=== PATIENT | female | born 1950 | race Caucasian/White ===

== ENCOUNTER 2016-11-23 12:44 | Inpatient (IN) | payer MEDICARE ==
[2016-11-23] VITALS (7 sets, daily range): BP systolic 107–136; BP diastolic 49–67; BMI 30.9
[~2016-11-23 12:44] MED LIST: ADVAIR 500/501 DISK INH; CLARITIN 10 MG10 MG PO; COLACE100 MG PO; FLUTICASONE PRO16 GM NASAL; IBUPROFEN400 MG; IPRAT-ALBUT 0.5-3 ML UPD; K-DUR20 MEQ PO; KEFLEX500 MG PO; LASIX20 MG PO; MIRALAX17 GM PO; NORVASC10 MG; OMNICEF300 MG PO; PEPCID20 MG PO; PHENYTEK200 MG PO; PRAVACHOL20 MG PO; PROZAC20 MG PO; TOPAMAX200 MG PO; TRAVOPROST 0.02.5 ML EACH EYE; TRAZODONE HCL50 MG PO; VITAMIN D31000 UNIT PO; ZYPREXA15 MG PO
[2016-11-23 13:25] LABS: BASOPHILS 0.2 % (0-2); EOSINOPHILS 0 % (0-7); HEMATOCRIT 35.3 % (36.0-48.0); HEMOGLOBIN 10.8 g/dL (12-16); IMMATURE GRANULOCYTES 0.3 % (0-5); LYMPHOCYTES 7.4 % (15-50); MCH 28.7 pg (26.0-34.0); MCHC 30.6 g/dL (31.0-37.0); MCV 93.9 fL (80.0-100.0); MEAN PLATELET VOLUME 10.8 fL (7.4-10.4); MONOCYTES 14.5 % (2-11); NEUTROPHILS 77.6 % (40-80); PLATELET COUNT 191 10x3/uL (130-400); RBC 3.76 10x6/uL (4.00-5.40); RDW 14.5 % (11.5-14.5); WBC 10.7 10x3/uL (4.8-10.8)
[2016-11-23 13:42] LABS: ALBUMIN 2.5 g/dL (3.4-5.0); ANION GAP 8.1 mmol/L (8-16); BILIRUBIN - TOTAL 0.2 mg/dL (0.2-1.3); CALCIUM 8.3 mg/dL (8.5-10.1); CARBON DIOXIDE 31.6 mmol/L (21.0-32.0); CREATININE - SERUM 0.9 mg/dL (0.6-1.3); POTASSIUM - SERUM 3.7 mmol/L (3.5-5.1); PROTEIN - SERUM 6.9 g/dL (6.4-8.2)
[2016-11-23 14:46] LABS: APPEARANCE CLEAR (CLEAR); BILIRUBIN NEGATIVE (NEGATIVE); COLOR YELLOW (YELLOW); GLUCOSE 50 mg/dL (NEGATIVE); KETONE NEGATIVE (NEGATIVE); NITRITE NEGATIVE (NEGATIVE); PROTEIN NEGATIVE (NEGATIVE); SPECIFIC GRAVITY 1.015 (1.005-1.020); UROBILINOGEN NORMAL (NORMAL)
--- NOTE | 2016-11-23 18:19 | NUR ---
1820 PT ARRIVED FROM THE ED VIA [facility].. PT IS AWAKE AND ALERT ABLE TO ANSWER QUESTIONS.. DAUGHTER IS [facility] PT .. BIPAP O2 ON 30% O2 SAT IS 96%...
--- NOTE | 2016-11-23 19:15 | NUR ---
Assessment completed per flowsheet, patient resting in bed on BiPAP. Patient AOx4, calm and cooperative. Eyes PERRLA @ 4mm with brisk response, sclera is slightly reddened. S1/S2 noted NSR on telemetry with HR 80, rhythmic and regular. Breathing is shallow and labored on BiPAP @ 30% with O2 sat 94%, Expiratory wheeze noted bilateral upper and mid with diminished L upper and bilateral lower. Abdomen is ditended and soft, tenderness noted L upper quadrant. Rodriguez secured in place, concentrated yellow urine noted in collection. Full ROM all extremities with slight weakness noted bilateral lower, all pulses palpable. Skin is warm/dry to touch, cap refill < 3 sec. 20g PIV noted L AC, patent and saline locked. Patient denies pain or other needs at this time, all VSS and will continue to monitor.
--- NOTE | 2016-11-23 23:00 | NUR ---
Reassessment completed per flowsheet, patient resting in bed with eyes closed. Eyes PERRLA @ 4mm with brisk response, sclera is slightly reddened. S1/S2 noted with HR 68, rhythmic and regular. Breathing is slightly shallow and labored on BiPAP @ 30% with O2 sat 96%, expiratory wheeze noted bilateral upper and mid with diminished L upper and bilateral lower. All pulses palpable with cap refill < 3 sec, skin is warm/dry to touch. Patient denies pain or other needs at this time, all VSS and will continue to monitor.
[2016-11-24] VITALS (25 sets, daily range): BP systolic 104–160; BP diastolic 52–82
--- NOTE | 2016-11-24 01:00 | NUR ---
Patient resting in bed with eyes closed on BiPAP, breathing is slightly shallow and labored with O2 sat 96%. Patient denies pain or other needs at this time, all VSS and will continue to monitor.
--- NOTE | 2016-11-24 03:00 | NUR ---
Reassessment completed per flowsheet, patient resting in bed with eyes closed. Patient AO x4, calm and cooperative. S1/S2 noted Sinus Delmar on telemetry with HR 58, rhythmic and regular. Breathing is slightly shallow and labored on BiPAP 30% with O2 sat 96%, expiratory wheeze noted bilateral upper and mid with diminished L upper and bilateral lower. All pulses palpable with cap refill < 3 sec, skin warm/dry to touch. Patient denies pain or other needs at this time, all VSS and will continue to monitor.
--- NOTE | 2016-11-24 05:00 | NUR ---
Patient laying in bed with eyes open watching TV on BiPAP, breathing is slightly shallow and labored with O2 sat 95%. Repositioned for comfort, patient denies pain or other needs at this time. All VSS and will continue to monitor.
[2016-11-24 05:08] LABS: BASOPHILS 0.1 % (0-2); EOSINOPHILS 0 % (0-7); HEMATOCRIT 35.7 % (36.0-48.0); HEMOGLOBIN 10.7 g/dL (12-16); IMMATURE GRANULOCYTES 0.2 % (0-5); LYMPHOCYTES 11.4 % (15-50); MCH 28.6 pg (26.0-34.0); MCV 95.5 fL (80.0-100.0); MEAN PLATELET VOLUME 11.1 fL (7.4-10.4); MONOCYTES 9.1 % (2-11); NEUTROPHILS 79.2 % (40-80); PLATELET COUNT 201 10x3/uL (130-400); RBC 3.74 10x6/uL (4.00-5.40); RDW 14.4 % (11.5-14.5); WBC 10.4 10x3/uL (4.8-10.8)
[2016-11-24 05:12] LABS: HEMOGLOBIN A1C 6.4 % (4.8-6.0)
[2016-11-24 05:26] LABS: ALBUMIN 2.5 g/dL (3.4-5.0); ANION GAP 13.2 mmol/L (8-16); BILIRUBIN - TOTAL 0.2 mg/dL (0.2-1.3); CALCIUM 8.1 mg/dL (8.5-10.1); CARBON DIOXIDE 31.6 mmol/L (21.0-32.0); CREATININE - SERUM 1.1 mg/dL (0.6-1.3); POTASSIUM - SERUM 3.8 mmol/L (3.5-5.1); PROTEIN - SERUM 6.9 g/dL (6.4-8.2); THYROID STIMULATING HORMONE 0.76 uIU/mL (0.36-3.74)
[2016-11-24 05:41] LABS: C-REACTIVE PROTEIN 31.3 mg/dL (0.0-0.9)
--- NOTE | 2016-11-24 07:15 | NUR ---
Dr Lockhart not consulted by ER, notified this AM in person.
--- NOTE | 2016-11-24 12:50 | NUR ---
ON BIPAP THIS AM. PLACE ON 3 LITERS PER NC. RESP DEEP AND REGULAR NO DISTRESS. VERY STRONG AND DEEP COUGH PRODUCTIVE. FAN PLACED IN ROOM AT PATIENT REQUEST LUNCH TRAY SERVED AT 50%. DAUGHTER HERE QUESTIONS ANSWERED
--- NOTE | 2016-11-24 17:15 | NUR ---
IV RESTARTED DUE TO LEAKING. 22 GAUGE INSERTED IN LEFT FOREARM Z 1 ATTEMPT. INFUSING WITH NS KVO. PATIENT TOLERATED WELL.
--- NOTE | 2016-11-24 19:00 | NUR ---
Received patient resting in bed with eyes open watching TV, assessment completed per flowsheet. Patient AO x4, calm and cooperative. Eyes PERRLA @ 4mm with brisk response, sclera is slightly reddened. S1/S2 noted NSR on telemetry with HR 65, rhythmic and regular. Breathing is slightly shallow and lobored on 3l via NC with O2 sat 96%, Inspiratory/Expiratory wheeze noted bilateral upper and mid with diminished lower. Abdomen is round and soft with bowel sounds active x4, non-tender. Rodriguez secured in place with concentrated dark yellow urine noted. Full ROM all extremities with slight weakness noted, all pulses palpable with cap refill < 3 sec. 20g PIV noted L wrist, patent with NS @ KVO (10ml) infusing. Patient c/o burning pain 1/10 midsternal when coughing, denies other needs at this time. All VSS and will continue to monitor.
--- NOTE | 2016-11-24 21:00 | NUR ---
No visitors at this time, all HS meds given without difficulty. Patient denies pain or other needs at this time, all VSS and will continue to monitor.
--- NOTE | 2016-11-24 22:15 | NUR ---
Patient placed on BiPAP at request, BiPAP @ 30% with O2 sat 98%.
--- NOTE | 2016-11-24 22:50 | NUR ---
Reassessment completed per flowsheet, patient resting in bed on BiPAP. Patient AO x4, calm and cooperative. S1/S2 noted Sinus Delmar on telemetry with HR 58, rhythmic and regular. Breathing is slightly shallow on BiPAP @ 30% with O2 sat 97%, Inspiratory/Expiratory wheeze noted bilateral upper and mid with diminished lower. All pulses palpable with cap refill < 3 sec, skin is warm/dry to touch. Patient denies pain or other needs at this time, all VSS and will continue to monitor.
[2016-11-25] VITALS (14 sets, daily range): BP systolic 103–136; BP diastolic 52–83
--- NOTE | 2016-11-25 01:00 | NUR ---
Patient resting in bed with eyes closed on BiPAP @ 30% with O2 sat 96%. No further needs at this time, all VSS and will continue to monitor.
--- NOTE | 2016-11-25 02:40 | NUR ---
Patient had BM in bed, small formed brown stool. Full Bed bath/Linen change performed, patient repositioned. No further needs at this time, will continue to monitor.
--- NOTE | 2016-11-25 03:00 | NUR ---
Reassessment completed per flowsheet, patient resting in bed with eyes closed on BiPAP. Patient AO x4, calm and cooperative. S1/S2 noted Sinus Delmar on telemetry with HR 56, rhythmic and regular. Breathing is slightly shallow on BiPAP 30% with O2 sat 98%, Inspiratory/Expiratory wheeze noted bilateral upper and mid with diminished lower. All pulses palpable with cap refill < 3 sec, skin warm/dry to touch. Patient denies pain or other needs at this time, all VSS and will continue to monitor.
--- NOTE | 2016-11-25 05:00 | NUR ---
Patient resting in bed with eyes closed on BiPAP @ 30% with O2 sat 96%. Patient denies pain or other needs at this time, all VSS and will continue to monitor.
[2016-11-25 05:37] LABS: ANION GAP 8.9 mmol/L (8-16); CALCIUM 8.6 mg/dL (8.5-10.1); CARBON DIOXIDE 33.7 mmol/L (21.0-32.0); CREATININE - SERUM 1.2 mg/dL (0.6-1.3); MAGNESIUM - SERUM 1.8 mg/dL (1.8-2.4); PHOSPHOROUS 3.2 mg/dL (2.5-4.9); POTASSIUM - SERUM 3.6 mmol/L (3.5-5.1)
[2016-11-25 05:46] LABS: BASOPHILS 0.2 % (0-2); EOSINOPHILS 0.1 % (0-7); HEMOGLOBIN 10.7 g/dL (12-16); IMMATURE GRANULOCYTES 0.5 % (0-5); LYMPHOCYTES 10.7 % (15-50); MCH 28.4 pg (26.0-34.0); MCHC 30.6 g/dL (31.0-37.0); MCV 92.8 fL (80.0-100.0); MEAN PLATELET VOLUME 11.2 fL (7.4-10.4); MONOCYTES 7.2 % (2-11); NEUTROPHILS 81.3 % (40-80); PLATELET COUNT 211 10x3/uL (130-400); RBC 3.77 10x6/uL (4.00-5.40); RDW 14.1 % (11.5-14.5); WBC 9.5 10x3/uL (4.8-10.8)
--- NOTE | 2016-11-25 06:20 | NUR ---
Patient L wrist IV infiltrated, resited x1 attempt to L forearm. Patent with dressing CDI, fluids infusing.
--- NOTE | 2016-11-25 08:53 | NUR ---
* Is the patient Alert and Oriented? Yes 0 * How many steps to enter\exit or inside your home? 4 0 * PCP Dr. Avery Stanley 0 * Pharmacy [facility] 0 * Preadmission Environment Home Alone 0 * ADLs Partial Dependent 0 * Partial ADLs (Assistance needed) Medication Management 0 * Equipment CPAP Nebulizer Oxygen Rolling Walker 0 * List name and contact numbers for known caregivers / representatives who currently or will assist patient after discharge: Rocío Baker [phone] 0 * Additional services required to return to the preadmission environment? No 0 * Can the patient safely return to the preadmission environment? Yes 0 * Has this patient been hospitalized within the prior 30 days at any hospital? No Patient Name: KANDY BAKER Admission Status: ER Accout number: [id number] Admission Date: 11-23-2016 : 1950 Admission Diagnosis: Attending: LINDA, Current LOS: 2 Planned Disposition: Assisted Living Primary Insurance: MEDICARE A & B Discharge Planning Comments: CM met with patient to assess dc plans/needs. Patient states she lives at [facility]. They provide assistance with medication administration. She uses a walker, O2, Nebulizer & CPAP. At dc, she plans to return to [place]. Discussed services - she states she does not feel she will need them, stating [place] provides her with all the help she needs. CM will follow & assist as needed. Split Leather Mosser: Rebecca Pelletier
--- NOTE | 2016-11-25 10:01 | NUR ---
DAUGHTER CALLED TO CHECK ON PATIENT SHE STATED SHE WOULD BE HERE AROUND 1200 VISITING. PATIENT DENIES ANY NEEDS OR PAIN AT THIS TIME.
--- NOTE | 2016-11-25 11:09 | NUR ---
DR. MCGRAW IN TO SEE PATIENT, NEW ORDERS RECEIVED.
--- NOTE | 2016-11-25 11:36 | NUR ---
PHYSICAL THERAPY HERE IN ROOM WITH PATIENT. PATIENT TRANSFERRED WITH MINIMAL ASSIST TO CHAIR.
--- NOTE | 2016-11-25 12:19 | NUR ---
PATIENT EATING LUNCH WHILE SITTING UP IN CHAIR. CALL WITHIN REACH. PATIENT IS IN GOOD STABLE CONDITION.
--- NOTE | 2016-11-25 13:45 | NUR ---
PATIENT IS UP IN CHIAR AT BEDSIDE TOLERATING WELL. CALL LIGHT WITHIN REACH. PATIENT DENIES ANY NEEDS AT THIS TIME.
--- NOTE | 2016-11-25 16:25 | NUR ---
CALLED TO GIVE REPORT FOR PATIENT TRANSFERRING TO ROOM 2113. ROOM IS BEING CLEANED AND WILL CALL WHEN IT IS FINISHED.
--- NOTE | 2016-11-25 16:34 | NUR ---
ESTRADA CATH REMOVED TIP INTACT WITHOUT DRAINAGE NOTED. PATIENT IS ABLE TO GET UP AND DOWN WITH MINIMAL ASSISTANCE, AND REQUESTED ESTRADA TO BE OUT.
--- NOTE | 2016-11-25 17:06 | NUR ---
REPORT CALLED TO [facility], SPOKE WITH ANTONINO DRAPER. PATIENT WILL BE TRANSFERRING TO 2112.
--- NOTE | 2016-11-25 17:07 | NUR ---
PATIENT TRANSFERRED TO [facility] ROOM 2113 VIA W/C IN GOOD STABLE CONDITION. PATIENT TOLERATED TRANSFER WELL. PATIENTS GLASSES AND BELONGS SENT WITH PATIENT.
--- NOTE | 2016-11-25 17:30 | NUR ---
PT RECEIVED FROM ICU. PT IS ALERT AND ORIENTED. VS ON TRANSFER STABLE. PT IS ON 3L OXYGEN VIA NC. STILL GETTING SOB WITH EXERTION, BUT GAIT IS STEADY. LUNG SOUNDS SHOW CRACKLES IN LEFT BASES AND SCATTERED RHONCHI. NSR W/ RATE OF 60'S ON MONITOR. IVF- NS @ 10CC/HR TO 22G LEFT FOREARM SITE. IV ZITHROMAX RUNNING. PT IS REQUESTING FAN, [employer] CALLED. STATES THAT SHE WILL GET ONE FOR PT, BUT IT WILL BE A LITTLE WHILE. TISSUES GIVEN TO PT PER REQUEST. PT DENIES ANY OTHER QUESTIONS, CONCERNS, OR NEEDS. WILL CONT TO MONITOR.
--- NOTE | 2016-11-25 18:30 | NUR ---
PT'S ESTRADA WAS D/C'D AROUND 1630 BY ICU, PT HAS VOIDED X 2 SINCE HER ARRIVAL ON THE UNIT.
--- NOTE | 2016-11-25 23:12 | NUR ---
NURSE ROUNDS 20:00 - PT LYING IN BED, BIPAP ON, PT RESTING COMFORTABLY, NO NEEDS. CONTINUE TO MONITOR CLOSELY. BED LOW, CALL LIGHT IN REACH, SIDE RAILS X 2, HOB 30 DEGREES.
[2016-11-26] VITALS: BP 111/47
[2016-11-26 04:00] VITALS: BP 119/63; BP 126/54
[2016-11-26 05:22] LABS: BASOPHILS 0.1 % (0-2); EOSINOPHILS 0 % (0-7); HEMATOCRIT 36.9 % (36.0-48.0); HEMOGLOBIN 11.3 g/dL (12-16); IMMATURE GRANULOCYTES 0.8 % (0-5); LYMPHOCYTES 14.6 % (15-50); MCH 28.3 pg (26.0-34.0); MCHC 30.6 g/dL (31.0-37.0); MCV 92.5 fL (80.0-100.0); MONOCYTES 8.6 % (2-11); NEUTROPHILS 75.9 % (40-80); PLATELET COUNT 227 10x3/uL (130-400); RBC 3.99 10x6/uL (4.00-5.40); RDW 14.1 % (11.5-14.5); WBC 8.6 10x3/uL (4.8-10.8)
[2016-11-26 05:39] LABS: ANION GAP 10.5 mmol/L (8-16); C-REACTIVE PROTEIN 10.6 mg/dL (0.0-0.9); CARBON DIOXIDE 33.3 mmol/L (21.0-32.0); CREATININE - SERUM 1.1 mg/dL (0.6-1.3); POTASSIUM - SERUM 3.8 mmol/L (3.5-5.1)
--- NOTE | 2016-11-26 07:13 | NUR ---
PT LAYING TO LEFT SIDE SLEEPING ARROUSES EASILY. PT DENIES NEEDS WILL CONT TO MONITOR
[2016-11-26 08:22] VITALS: BP 141/58
[2016-11-26 11:17] LABS: ANA REFLEX - DIRECT Negative (Negative)
--- NOTE | 2016-11-26 11:27 | NUR ---
RAKESH CAME UP AND SAID TO PLACE PT IN TEMP ISOLATION FOR POSSIBLE MRSA IN THE SPUTUM. PLACED PT IN DROPLET ISO
[2016-11-26 11:48] VITALS: BP 120/55
[2016-11-26 13:05] VITALS: BMI 31.1
--- NOTE | 2016-11-26 14:45 | NUR ---
COVERING PATIENTS FOR ROSY MUÑIZ. PT ACCIENTALLY PULLED OUT HER PERIPHERAL IV, WILL NEED NEW ACCESS.
[2016-11-26 16:04] VITALS: BP 152/68
--- NOTE | 2016-11-26 16:06 | NUR ---
PT PULLED IV OUT BY MISTAKE WITH CATH TIP INTACT. RESITED TO R FA 22G X1 STICK
--- NOTE | 2016-11-26 17:58 | NUR ---
PT LAYING TO LEFT SIDE DENIES NEEDS
[2016-11-27] VITALS: BP 127/52
[2016-11-27 04:00] VITALS: BP 158/76
[2016-11-27 05:51] LABS: BASOPHILS 0.1 % (0-2); EOSINOPHILS 0 % (0-7); HEMATOCRIT 38.1 % (36.0-48.0); HEMOGLOBIN 11.9 g/dL (12-16); IMMATURE GRANULOCYTES 2.1 % (0-5); LYMPHOCYTES 14.7 % (15-50); MCH 28.7 pg (26.0-34.0); MCHC 31.2 g/dL (31.0-37.0); MCV 91.8 fL (80.0-100.0); MEAN PLATELET VOLUME 10.6 fL (7.4-10.4); MONOCYTES 8.4 % (2-11); NEUTROPHILS 74.7 % (40-80); PLATELET COUNT 242 10x3/uL (130-400); RBC 4.15 10x6/uL (4.00-5.40); RDW 14.1 % (11.5-14.5); WBC 10.3 10x3/uL (4.8-10.8)
[2016-11-27 06:04] LABS: ANION GAP 11.4 mmol/L (8-16); CALCIUM 8.3 mg/dL (8.5-10.1); CARBON DIOXIDE 31.4 mmol/L (21.0-32.0); CREATININE - SERUM 0.9 mg/dL (0.6-1.3); POTASSIUM - SERUM 3.8 mmol/L (3.5-5.1)
--- NOTE | 2016-11-27 07:20 | NUR ---
PT LAYING TO LEFT SIDE SLEEPING NO S/S DISTRESS NOTED RR EVEN AND UNLABORED WILL CONT TO MONITOR
[2016-11-27 08:00] VITALS: BP 136/64
[2016-11-27 12:00] VITALS: BP 121/56
[2016-11-27 16:00] VITALS: BP 124/46
--- NOTE | 2016-11-27 18:09 | NUR ---
PT SITTING UP IN BED ASLEEP NO S/S DISTRESS NOTED RR EVEN AND UNLABORED.
--- NOTE | 2016-11-27 19:15 | NUR ---
RECEIVED CARE FROM DAY NURSE. PT IN HIGH FOWLERS POSTION. REPORTS NO NEEDS AT THIS TIME. CALL LIGHT AT SIDE.
[2016-11-27 20:52] VITALS: BP 125/66
--- NOTE | 2016-11-27 23:04 | NUR ---
PT LYING IN BED ON SIDE. EYES CLOSED. RESP EVEN AND UNLABORED. BIPAP IN PLACE. IV INFUSING ABX PER ORDER. CALL LIGHT AT SIDE. WILL CONTINUE TO MONITOR.
--- NOTE | 2016-11-28 01:00 | NUR ---
PT RESTING WELL, RESP EVEN AND UNLABORED. CALL LIGHT WITHIN REACH. WILL MONITOR.
[2016-11-28 01:06] VITALS: BP 167/67
[2016-11-28 04:00] VITALS: BP 130/58
--- NOTE | 2016-11-28 06:44 | NUR ---
IV IN RIGHT FA SWOLLEN AND PAINFUL. DC'D WITH TIP INTACT. RESITED TO RIGHT FA WITH 22 GAUGE X1 STICK WITH GOOD BLOOD RETURN NOTED.
[2016-11-28 07:17] LABS: BASOPHILS 0.2 % (0-2); EOSINOPHILS 0.1 % (0-7); HEMATOCRIT 39.4 % (36.0-48.0); HEMOGLOBIN 12.2 g/dL (12-16); IMMATURE GRANULOCYTES 2.9 % (0-5); LYMPHOCYTES 15.8 % (15-50); MCH 28.4 pg (26.0-34.0); MCV 91.8 fL (80.0-100.0); MEAN PLATELET VOLUME 10.8 fL (7.4-10.4); MONOCYTES 8.7 % (2-11); NEUTROPHILS 72.3 % (40-80); PLATELET COUNT 254 10x3/uL (130-400); RBC 4.29 10x6/uL (4.00-5.40); RDW 14.1 % (11.5-14.5); WBC 10.2 10x3/uL (4.8-10.8)
[2016-11-28 07:36] LABS: ANION GAP 14.3 mmol/L (8-16); CALCIUM 9.2 mg/dL (8.5-10.1); CARBON DIOXIDE 29.3 mmol/L (21.0-32.0); CREATININE - SERUM 1.1 mg/dL (0.6-1.3); POTASSIUM - SERUM 3.6 mmol/L (3.5-5.1)
--- NOTE | 2016-11-28 07:55 | NUR ---
IN THE BATHROOM AT THIS TIME WITH NO ASSISTANCE. DENIES NEEDS AT THIS TIME. OXYGEN ON 3L VIA NC. WILL CONTINUE WITH PLAN OF CARE.
[2016-11-28 08:00] VITALS: BP 129/57
--- NOTE | 2016-11-28 09:20 | NUR ---
SCHEDULED MEDICATIONS ADMINISTERED AT THIS TIME. TAKEN WITHOUT DIFFICULTY. PT REFUSING MIRALAX AT THIS TIME. REMAINS IN DROPLET ISOLATION. CALL LIGHT IN REACH, WILL CONTINUE WITH PLAN OF CARE.
[2016-11-28 16:00] VITALS: BP 125/56
--- NOTE | 2016-11-28 17:55 | NUR ---
NO CHANGES SINCE BEGINNING OF SHIFT. OXYGEN ON 2L VIA NC WITH RESPIRATIONS EVEN AND NON LABORED. CALL LIGHT IN REACH, WILL CONTINUE WITH PLAN OF CARE.
[2016-11-28 19:00] VITALS: BP 107/64
--- NOTE | 2016-11-28 19:20 | NUR ---
REPORT RECEIVED. SHIFT ASSESSMENT COMPLETED PER FLOW SHEET. PT LAYING IN BED AWAKE AND ALERT. 2 L O2 VIA NC. S1S2 PRESENT. RADIAL AND PEDAL PULSES PALP. BS ACTIVE X4. REPORT NO PROBLEMS VOIDING OR DEFECATING. MUCOUS MEMBRANES MOIST. SKIN WARM AND DRY. RT FOREARM PIV, PATENT, SALINE LOCKED. PT ON DROPLET PRECAUTIONS. SEE FLOW SHEET FOR COMPLETE ASSESSMENT. WILL CONTINUE TO MONITOR.
--- NOTE | 2016-11-28 21:18 | NUR ---
PT LAYING IN BED AWAKE, MEDS ADMINISTERED PER EMAR. NO PROBLEMS NOTED TAKING MEDICATIONS. DENIES FURTHER NEEDS. CALL LIGHT WITHIN REACH. BED IN LOWEST POSITION. WILL CONTINUE TO MONITOR.
--- NOTE | 2016-11-28 23:12 | NUR ---
PT LAYING IN BED, MEDS ADMINISTERED PER EMAR. DENIES FURTHER NEEDS AT THIS TIME. CALL LIGHT WITHIN REACH. BED IN LOWEST POSITION. WILL CONTINUE TO MONITOR.
[2016-11-29] VITALS: BP 150/71
--- NOTE | 2016-11-29 01:00 | NUR ---
PT LAYING IN BED RESTING. NO DISTRESS NOTED. CALL LIGHT WITHIN REACH. BED IN LOWEST POSITION. WILL CONTINUE TO MONITOR.
--- NOTE | 2016-11-29 03:24 | NUR ---
PT LAYING IN BED RESTING, MEDS ADMINISTERED PER EMAR SEE FOR DETAILS. DENIES NEEDS AT THIS TIME. CALL LIGHT WITHIN REACH. BED IN LOWEST POSITION.
[2016-11-29 04:22] VITALS: BP 146/61
--- NOTE | 2016-11-29 05:00 | NUR ---
PT LAYING IN BED, WATER PROVIDED PER REQUEST. DENIES FURTHER NEEDS. CALL LIGHT WITHIN REACH. BED IN LOWEST POSITION.
--- NOTE | 2016-11-29 06:33 | NUR ---
PT IN BATHROOM, NO PROBLEMS NOTED. MEDS ADMINISTERED PER EMAR. DENIES NEEDS AT THIS TIME. CALL LIGHT WITHIN REACH. BED IN LOWEST POSITION. WILL CONTINUE TO MONITOR.
--- NOTE | 2016-11-29 07:00 | NUR ---
REPORT RECEIVED FROM OFF GOING NURSE. SEE SLOW SHEET FOR ASSESSMENT. PT DENIES PAIN AT THIS TIME. BREATHING NORMAL AND UNLABORED. DENIES NEEDS AT THIS TIME. CALL LIGHT IN REACH IN REACH. WILL CONT POC
[2016-11-29 08:00] VITALS: BP 139/67
--- NOTE | 2016-11-29 11:20 | NUR ---
Nutrition Follow Up: Pt is eating 94% meal avg on a diabetic diet. +BM 11/28/16. Wt loss since admit noted - likely r/t fluid. Labs reviewed. Meds noted including Solu-Medrol, Lasix. Rec continue current diet. RD following.
[2016-11-29 12:00] VITALS: BP 143/66
[2016-11-29] MEDS ORDERED: DOXYCYCLINE HY100 M2 PO (15:07)
[2016-11-29] MEDS ORDERED: LEVAQUIN750 MG PO ×2 (15:07→15:11)
[2016-11-29] MEDS ORDERED: GLUCOPHAGE500 MG PO (15:07)
[2016-11-29] MEDS ORDERED: PREDNISONE10 MG PO (15:08)
--- NOTE | 2016-11-29 17:00 | NUR ---
Patient Name: KANDY MAX Encounter No: [id number] : 1950 Primary Insurance: MEDICARE A & B Anticipated DC Date: 11-29-2016 Planned Disposition: Assisted Living External [facility] follow-up note: CM RECEIVED DISCHARGE ORDER, MET WITH PT IN ROOM TO DISCUSS DISCHARGE NEEDS AND PLANNING. CM DISCUSSED AVAILABILITY OF HOME HEALTH, REHAB SERVICES AND MEDICAL EQUIPMENT. PT DENIES DISCHARGE NEEDS. DAUGHTER TO TRANSPORT HOME AT DISCHARGE. IMPORTANT MESSAGE FROM MEDICARE PROVIDED AND EXPLAINED. CM CALLED [facility], , SPOKE TO NORMA WHO ADVISED THAT NO NURSE REPORT IS NEEDED AND TO SEND MEDICATION LIST AND INSTRUCTIONS WITH PT. PT AND DAUGHTER NOTIFIED. HEAD OF DRAMA NURSE NOTIFIED. Stefan Stone, CASE MANAGEMENT
--- NOTE | 2016-11-29 17:05 | NUR ---
DISCHARGE INSTUCTIONS GIVEN TO PT. ANSERED ALL QUESTIONS. IV DC WITH CATHETER TIP INTACT. ALL BELONGINS ACCOUNTED FOR. LEFT VIA W/C. BREATHING NORMAL AND UNLABORED.0 S/SX OF DISTRESS/DISCOMFORT.
--- NOTE | 2016-11-29 17:42 | NUR ---
DELETED LEVAQUIN ALLERGY PT HAS BEEN TAKING IT AND NO REACTION NOTED.
[2016-11-30 03:10] LABS: MYCOPLASMA PNEUMO IGG 3049 U/mL (0-99)
--- NOTE | 2016-12-20 15:54 | DS ---
PATIENT:KANDY MAX :[birth year] MEDICAL RECORD: [id number] DISCHARGE SUMMARY ADMISSION DATE: 11/23/16 DISCHARGE DATE: 11/29/16 ADMIT DATE: 11/23/2016 DISCHARGE DATE: 11/29/2016 DIAGNOSES: 1. Acute exacerbation of chronic obstructive pulmonary disease. 2. Acute systolic dysfunction. 3. Hypotension. 4. Noninsulin dependent diabetes mellitus. 5. Obstructive sleep apnea. 6. Acute exacerbation of chronic bronchitis. 7. Hypercapnic hypoxic respiratory failure. 8. Aspiration. 9. Rhinitis, sinusitis. 10. Gastroesophageal reflux disease. CONSULTS: Eugenio Lockhart MD IMAGES OR STUDIES: 1. Venous dopplers of the lower extremities which was negative for DVT. She had a Grijalva cyst on the left popliteal. 2. Portable chest showed left lower lobe pneumonia along with some vascular congestion. HOSPITAL COURSE: The full H&P is listed elsewhere in the chart for this 66-year-old patient who was admitted with hypoxic hypercapnic respiratory failure. Pulmonary consult was obtained. The patient underwent aggressive pulmonary support with updrafts, IV Solu-Medrol, and antibiotic coverage. He did require stay in the ICU and BiPAP therapy. The patient was gently diuresed. A 2D echo showed a well reserved LV function of 55% with moderate MR and mild to moderate aortic insufficiency with a right ventricular systolic pressure of 38 mmHg. DVT and GI prophylaxis were instituted during this patient's hospitalization. The patient's clinical condition began to slowly improve. The patient was transferred to the medical floor to continue PT. He continued to improve and his antibiotic therapy was deescalated, was thought to be stable to discharge to [facility]. See med rec. TRANSINT:[id number] Voice Confirmation ID: [id number] DOCUMENT ID: [id number] Dictated By: KYLAH ROBERTSON I have interviewed/examined the above patient and agree with these documented findings. at 1110 at 1553 CC: [id number] DICTATION DATE: 12/15/16 1559 GRINDER SET UP OPERATOR INTERNAL: 12/16/16 0605 DIS IN 11/29/16 [id number] [place] [address]
== END 2016-11-29 17:45 | disposition home or self-care (01) | DRG 291 ==
LOC: D.ER 12:44 → D.M2 16:33 → D.ICU 16:33 → D.M2 11-25 17:26 → D.SDCHOLD 11-26 21:48 → D.M2 11-26 21:51
PROVIDERS: Emergency Medicine; Internal Medicine Pulmonary Disease; ADMIT Family Medicine
PROC: 5A09557 Assistance with Respiratory Ventilation, Greater than 96 Consecutive Hours, Continuous Positive Airway Pressure (ICD-10-PCS; principal; 2016-11-23)
PROC: 0T9B70Z Drainage of Bladder with Drainage Device, Via Natural or Artificial Opening (ICD-10-PCS; 2016-11-23)
DX: I11.0 Hypertensive heart disease with heart failure (principal); J96.22 Acute and chronic respiratory failure with hypercapnia; J18.9 Pneumonia, unspecified organism; J96.21 Acute and chronic respiratory failure with hypoxia; J44.1 Chronic obstructive pulmonary disease with (acute) exacerbation; J44.0 Chronic obstructive pulmonary disease with (acute) lower respiratory infection; I50.21 Acute systolic (congestive) heart failure; E11.9 Type 2 diabetes mellitus without complications; G40.909 Epilepsy, unspecified, not intractable, without status epilepticus; F17.200 Nicotine dependence, unspecified, uncomplicated; D64.9 Anemia, unspecified; E78.5 Hyperlipidemia, unspecified; K21.9 Gastro-esophageal reflux disease without esophagitis; G47.33 Obstructive sleep apnea (adult) (pediatric); Z86.73 Personal history of transient ischemic attack (TIA), and cerebral infarction without residual deficits; I08.1 Rheumatic disorders of both mitral and tricuspid valves

== ENCOUNTER → 2017-03-21 21:25 | Outpatient (CLI) | payer MEDICARE ==
[~2017-03-21 21:25] MED LIST changes: +DOXYCYCLINE HY100 M2 PO; +GLUCOPHAGE500 MG PO; +LEVAQUIN750 MG PO; +PREDNISONE10 MG PO
[2017-03-21 22:00] LABS: BASOPHILS 0.2 % (0-2); EOSINOPHILS 0.1 % (0-7); HEMATOCRIT 38.3 % (36.0-48.0); HEMOGLOBIN 11.3 g/dL (12-16); IMMATURE GRANULOCYTES 0.3 % (0-5); LYMPHOCYTES 16.4 % (15-50); MCH 27.6 pg (26.0-34.0); MCHC 29.5 g/dL (31.0-37.0); MCV 93.4 fL (80.0-100.0); MEAN PLATELET VOLUME 11.2 fL (7.4-10.4); MONOCYTES 10.4 % (2-11); NEUTROPHILS 72.6 % (40-80); PLATELET COUNT 219 10x3/uL (130-400); RDW 15.2 % (11.5-14.5); WBC 10.2 10x3/uL (4.8-10.8)
[2017-03-21 22:18] LABS: ALBUMIN 3.3 g/dL (3.4-5.0); ANION GAP 13.8 mmol/L (8-16); BILIRUBIN - TOTAL 0.1 mg/dL (0.2-1.3); CALCIUM 8.5 mg/dL (8.5-10.1); CARBON DIOXIDE 31.5 mmol/L (21.0-32.0); POTASSIUM - SERUM 4.3 mmol/L (3.5-5.1); PROTEIN - SERUM 6.4 g/dL (6.4-8.2)
== END | disposition home or self-care (01) ==
LOC: D.LABREF 21:25
PROVIDERS: Family Medicine
DX: G40.909 Epilepsy, unspecified, not intractable, without status epilepticus (principal); I12.9 Hypertensive chronic kidney disease with stage 1 through stage 4 chronic kidney disease, or unspecified chronic kidney disease